=== PATIENT | male | born 1935 | race Caucasian/White ===

== ENCOUNTER 2016-11-23 09:23 | Emergency (ER) | payer MEDICARE | END 2016-11-23 10:28 | disposition home or self-care (01) | LOC: FER 09:23 | DX: H66.91 Otitis media, unspecified, right ear (principal); H10.023 Other mucopurulent conjunctivitis, bilateral; J41.1 Mucopurulent chronic bronchitis; I10 Essential (primary) hypertension; F17.210 Nicotine dependence, cigarettes, uncomplicated; Z79.899 Other long term (current) drug therapy; Z98.890 Other specified postprocedural states | CPT/HCPCS: 99283 ==